=== PATIENT | male | born 1970 | race Caucasian/White ===

== ENCOUNTER 2019-04-09 08:23 | Inpatient (IN) | payer OTHER ==
[2019-04-09] MEDS ORDERED: LEVALBUTEROL NEB 1.25 MG/3 ML VIAL.NEB NEB ONE (08:48)
[2019-04-09] MEDS ORDERED: BUPIV. HCL 0.25% (2.5MG/ML)/EPI. (1:200,000) PF 10 ML VIAL IM ONE (08:48)
[2019-04-09] MEDS ORDERED: LIDOCAINE HCL 1% PF 300MG/30ML VIAL ONE (08:48)
[2019-04-09] MEDS ORDERED: SODIUM CHLORIDE IRRIG SOLUTION 3,000 ML IRRIG.SOLN IR ONE (08:48)
[2019-04-09] MEDS ORDERED: ROCURONIUM BROMIDE 10 MG/ML 5ML VIAL ONE (08:48)
[2019-04-09] MEDS ORDERED: DEXAMETHASONE SODIUM PHOSPHATE 10 MG/ML VIAL ONE (08:48)
[2019-04-09] MEDS ORDERED: ceFAZolin SODIUM 1 GM VIAL ONE (08:48)
[2019-04-09] MEDS ORDERED: MIDAZOLAM HCL 2 MG/2 ML VIAL ONE (08:48)
[2019-04-09] MEDS ORDERED: SUGAMMADEX SODIUM 200 MG/2 ML VIAL IV ONE (08:48)
[2019-04-09] MEDS ORDERED: PROPOFOL 200 MG/20 ML VIAL IV ONE (08:48)
[2019-04-09] MEDS ORDERED: FAMOTIDINE 20 MG/2 ML VIAL IV ONE (08:48)
[2019-04-09] MEDS ORDERED: ONDANSETRON HCL/PF 4 MG/ 2ML VIAL ONE (08:48)
[2019-04-09] MEDS ORDERED: SCOPOLAMINE HYDROBROMIDE 1.5MG/72HR PATCH TD ONE (08:48)
[2019-04-09] MEDS ORDERED: LIDOCAINE HCL 2% PF 100MG/5ML VIAL IJ ONE (08:48)
[2019-04-09] MEDS ORDERED: SEVOFLURANE 250 ML LIQUID IH ONE (08:48)
[2019-04-09] MEDS ORDERED: LACTATED RINGERS 1,000 ML IV.SOLN IV ONE ×2 (08:48)
[2019-04-09] MEDS ORDERED: PATIENT OWN MED 1 EACH EACH PO SCH (10:00)
[2019-04-09] MEDS ORDERED: fentaNYL CITRATE/PF 100 MCG/2 ML INJ. ONE ×2 (12:29→12:51)
[2019-04-09] MEDS ORDERED: HYDROmorphone HCL/PF 1 MG/ML VIAL ONE (12:41)
[2019-04-09] MEDS ORDERED: 0.9 % SODIUM CHLORIDE 1,000 ML IV ONE (13:35)
[2019-04-09 13:55] VITALS: BMI 39.1
[2019-04-09] MEDS ORDERED: IPRATROPIUM/ALBUTEROL SULFATE 3 ML AMPUL.NEB NEB PRN (14:03)
[2019-04-09] MEDS ORDERED: HYDROcodone-ACETAMIN 7.5-325/15ML SOLN UD CUP PO PRN (14:22)
[2019-04-09] MEDS ORDERED: ONDANSETRON HCL/PF 4 MG/ 2ML VIAL IVP PRN (14:22)
[2019-04-09] MEDS ORDERED: ACETAMINOPHEN 1,000 MG/100 ML INJ IV PRN (14:22)
[2019-04-09] MEDS ORDERED: PROMETHAZINE HCL 25 MG in 0.9 % SODIUM CHLORIDE 50 ML IV PRN (14:22)
[2019-04-09] MEDS ORDERED: diphenhydrAMINE HCL 50 MG/ML VIAL IVP PRN (15:22)
[2019-04-09] MEDS: 0.9 % SODIUM CHLORIDE 1,000 ML IV SCH ×3 (15:40→22:20)
[2019-04-09] MEDS: MORPHINE SULFATE 2 MG/ML VIAL IV PRN ×2 (16:08→19:57)
[2019-04-09] MEDS: ceFAZolin SODIUM 1 GM in 0.9 % SODIUM CHLORIDE 50 ML IV SCH ×2 (16:16→23:00)
--- NOTE | 2019-04-09 18:36 | History and Physical Report ---
History of Present Illnes - History of Present Illness Reason for Visit: s/p gastric sleeve surgery History of Present Illness: 49yo who has had problems with morbid obesity for years with BMI of 39. Patient has tried various weight loss programs, engaged in exercise and has not been successful at losing much weight or maintaining any weight loss that he has accomplished. Patient has comorbidities of hyperlipidemia, GERD, and obstructive sleep apnea. Patient presented to day for gastric sleeve surgery. Patient did not have any intraoperative complications. Patient admitted to floor for further postoperative care. 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 ) - Past Family History Mother Family History: DM, , Other (RA, melenoma) Father Family History: Cancer (liver), (77yo) - Past Social History Smoke: # pack years (62), Quit (about 6 weeks ago) Occupation: disabled Alcohol: None Drugs: None Lives: Alone Domestic Violence: Negative - Health Maintenance Health Maintenance: Cholesterol. denies: Influenza Vaccine Influenza Vaccine: No Pneumonia Vaccine: No Resuscitation Status: Resusciation Status Resuscitation Status Full Code - Unable to Obtain History Unable to Obtain: No Review of Systems - Review of Systems Constitutional: negative: Fever, Chills, Weakness Eyes: negative: pain, vision change, conjunctivae inflammation ENT: negative: Ear Pain, Ear Discharge, Nose Pain, Nose Discharge, Nose Congestion, Mouth Pain, Mouth Swelling, Throat Pain Respiratory: negative: Cough, Dry, Shortness of Breath, Hemoptysis, SOB with Excertion, Pleuritic Pain, Sputum, Wheezing Cardiovascular: negative: Chest Pain, Palpitations, Orthopnea, Paroxysmal Noc. Dyspnea, Edema, Light Headedness Gastrointestinal: Abdominal Pain, Diarrhea. negative: Nausea, Vomiting Genitourinary: negative: Dysuria, Frequency, Hematuria Musculoskeletal: Neck Pain Skin: negative: Rash Neurological: negative: Weakness, Numbness, Incoordination, Confusion, Seizures - Medications/Allergies Home Medications: Home Medications Allopurinol [Zyloprim] 300 mg PO DAILY 04/09/19 Atorvastatin Calcium 10 mg PO DAILY 04/09/19 Crofelemer [Mytesi] 1 tab PO BID PRN 04/09/19 Enfuvirtide [Fuzeon] 90 mg SQ BID 04/09/19 Loperamide HCl [Loperamide] 4 mg PO BID PRN 04/09/19 Lopinavir/Ritonavir [Kaletra 200-50 mg Tablet] 1 tab PO BID 04/09/19 Pantoprazole Sodium [Protonix] 40 mg PO 0700 04/09/19 Ranitidine HCl [Heartburn Relief] 150 mg PO BID 04/09/19 Saquinavir Mesylate [Invirase] 1,000 mg PO BID 04/09/19 Current Inpatient Medications: Current Inpatient Medications Acetaminophen (Ofirmev) 1,000 mg IV Q6H PRN PRN Reason: For Mild Breakthrough Pain Stop: 04/13/19 14:21 Hydrocodone Bitart/Acetaminophen (Hycet 7.5-325mg/15 Ml Ud Cup) 15 ml PO Q4 PRN PRN Reason: Mild Pain (Score 1-4) Stop: 04/13/19 14:21 Albuterol/Ipratropium (Duoneb) 3 ml NEB Q4 PRN PRN Reason: Wheezing Stop: 05/09/19 14:02 Diphenhydramine HCl (Benadryl) 25 mg IVP Q6 PRN PRN Reason: itching Stop: 05/09/19 17:59 Last Admin: 04/09/19 16:06 Dose: 25 mg Enoxaparin Sodium (Lovenox) 40 mg SQ DAILY [facility] Stop: 04/24/19 11:59 Famotidine (Pepcid) 20 mg IVP BID [facility] Stop: 04/13/19 20:59 Sodium Chloride (Normal Saline) 1,000 mls @ 150 mls/hr IV Q10H [facility] Stop: 05/09/19 14:14 Last Admin: 04/09/19 16:13 Dose: 150 mls/hr Cefazolin Sodium 1 gm/ Sodium (Chloride) 50 mls @ 100 mls/hr IV Q8H [facility] Stop: 04/09/19 23:29 Last Admin: 04/09/19 16:16 Dose: 100 mls/hr Promethazine HCl 25 mg/ Sodium (Chloride) 51 mls @ 200 mls/hr IV Q6 PRN PRN Reason: Nausea / Vomiting Stop: 04/13/19 14:21 Miscellaneous (Patient Own Med) 2 each PO Q12H [facility] Stop: 05/10/19 09:59 Miscellaneous (Patient Own Med) 1 each SQ Q12H [facility] Stop: 05/09/19 21:59 Miscellaneous (Patient Own Med) 1 each PO Q12H [facility] Stop: 05/10/19 09:59 Morphine Sulfate () 2 mg IV Q2H PRN PRN Reason: Moderate Pain (Score 5-7) Stop: 04/13/19 14:21 Last Admin: 04/09/19 16:08 Dose: 2 mg Ondansetron HCl (Zofran) 4 mg IVP Q6H PRN PRN Reason: Nausea / Vomiting Stop: 04/13/19 14:21 Exam - Exam Vital Signs: Vital Signs (72 hours) 04/09/19 04/09/19 04/09/19 13:48 13:50 17:54 Temperature 98.2 F 98.2 F 98.1 F Pulse Rate [ 80 80 Left] Pulse Rate [ 67 Right] Respiratory 20 20 20 Rate Blood Pressure 166/100 166/100 [Left Arm] Blood Pressure 155/91 [Right Arm] O2 Sat by Pulse 96 99 Oximetry General: Alert, Oriented to Person, Oriented to Place, Oriented to Time, Cooperative, Moderate distress HEENT: Atraumatic, PERRLA, EOMI, Mouth Mucous membr. moist/[place], Nose Mucous membr. moist/[place] Neck: Normal Range of Motion Carotids: WNL Thyroid: WNL Lungs: Clear to auscultation, Normal air movement, Speaks full Sentences Cardiovascular: Regular rate, Normal S1, Normal S2, No murmurs Abdomen: Soft, No hepatospenomegaly, No masses, Other (incision sites clean and dry), Decreased Bowel Sounds Integumentary: Normal, [place], Warm, Dry Extremities: No clubbing, No cyanosis, No edema, Normal pulses, No tenderness/swelling Neurological: Normal gait, Normal speech, Strength Equal Bilat, Normal tone, Sensation intact, Cranial nerves 3-12 NL, Reflexes 2+ Psych/Mental Status: Mental status NL, Mood NL, Appropriate Affect, Intact Judgment Assessment/Plan - Assessment/Plan (1) S/P gastrointestinal surgery Status: Acute Current Visit: Yes Assessment: routine post op care (2) HIV (human immunodeficiency virus infection) Status: Chronic Current Visit: Yes Assessment: continue home meds (3) GERD without esophagitis Status: Chronic Current Visit: Yes (4) Hyperuricemia Status: Chronic Current Visit: Yes Assessment: continue home med (5) Observed sleep apnea Status: Chronic Current Visit: Yes (6) Chronic cervical pain Status: Chronic Current Visit: Yes Assessment: monitor (7) IBS (irritable bowel syndrome) Status: Chronic Current Visit: Yes Qualifiers: Irritable bowel syndrome type: with diarrhea Qualified Code(s): K58.0 - Irritable bowel syndrome with diarrhea Assessment: stable VTE Assessment - RISK FACTOR SCORE VTE RISK FACTOR SCORES: AGE 40-60 YEARS, ANTICIPATED BED CONFINEMENT OR IMMOBILIZATION > 24 HOURS
[2019-04-09] MEDS: FAMOTIDINE 20 MG/2 ML VIAL IVP SCH (20:02)
[2019-04-09] MEDS ORDERED: [UNRECOGNIZED DRUG - OTHER] SQ SCH (21:00)
[2019-04-09] MEDS: PATIENT OWN MED 1 EACH EACH SQ SCH (22:00)
[2019-04-10] MEDS: 0.9 % SODIUM CHLORIDE 1,000 ML IV SCH ×3 (05:36→17:48)
[2019-04-10 05:53] LABS: BASOPHILS % 0.2 % (0.0-1.5); NEUTROPHILS # 7.6 # k/uL (1.4-7.7)
[2019-04-10 05:58] LABS: eGFR (Non-African) > 60
--- NOTE | 2019-04-10 06:20 | Inpatient Progress Note ---
Subjective - Required Recertification Statement I anticipate X number of days because-include discharge plan: 1 - Review of Systems Events since last encounter: Patient has been up walking in the hallway this morning; he states he had some nausea and abdominal discomfort; seems to be doing well. Very social; VSS. He states that he did not get much sleep. He was having a lot of discomfort last night. He states that pain is improving. He denies any chest pain or shortness of breath. He has been up ambulating in the halls and using incentive spirometer while awake. He is compliant with care. General: Denies: Fatigue HEENT: Denies: Head Aches Pulmonary: Denies: Dyspnea Cardiovascular: Denies: Chest Pain, Light Headedness Gastrointestinal: Nausea, Vomiting, Abdominal Pain Genitourinary: Denies: Dysuria Musculoskeletal: Denies: Back Pain Neurological: Weakness Objective - Exam Vitals and I&O: Vital Signs Temp 98.4 F 04/10/19 05:26 Pulse 51 L 04/10/19 05:26 Resp 20 04/10/19 05:26 BP 157/86 04/10/19 05:26 Pulse Ox 94 04/10/19 05:26 Intake & Output 04/09/19 04/09/19 04/10/19 11:59 23:59 11:59 Intake Total 490 840 Output Total 225 900 Balance 265 -60 Weight 106.594 kg Intake: IV 450 600 Right Hand 450 600 Oral 40 240 Output: Urine 225 900 Other: Voiding Method Urinal Urinal # Voids 2 # Bowel Movements 0 0 General: Alert, Oriented to Person, Oriented to Place, Oriented to Time, Cooperative, Mild distress, Morbidly Obese HEENT: Atraumatic, PERRLA, Mouth Mucous membr. moist/[place], Nose Mucous membr. moist/[place] Neck: Supple, +2 carotid pulse wo bruit Lungs: Clear to auscultation, Normal air movement, Speaks full Sentences Cardiovascular: Normal S1, Normal S2, Bradycardia (45) Abdomen: Soft, Decreased Bowel Sounds Extremities: No edema, Normal pulses, No tenderness/swelling Skin: Warm, Dry, Pale, Other (incisions x5 without redness/erythema/drainage; Skin adhesive intact) Neurological: Normal gait, Normal speech, Strength Equal Bilat, Generalized Weakness Psych/Mental Status: Mental status NL, Mood NL, Appropriate Affect, Intact Judgment - Results Results: Laboratory Results WBC 9.30 K/ul (4.00-12.00) 04/10/19 05:15 RBC 3.80 M/ul (3.90-5.20) L 04/10/19 05:15 Hgb 12.5 g/dL (12.0-18.0) 04/10/19 05:15 Hct 36.0 % (37.0-53.0) L 04/10/19 05:15 MCV 95.0 fl (80.0-100.0) 04/10/19 05:15 MCH 32.8 pg (28.0-34.0) 04/10/19 05:15 MCHC 34.6 g/dL (30.0-36.0) 04/10/19 05:15 RDW 12.6 % (11.3-14.3) 04/10/19 05:15 Plt Count 192 K/mm3 (130-400) 04/10/19 05:15 Neut % (Auto) 81.5 % (39.0-79.0) H 04/10/19 05:15 Lymph % (Auto) 14.3 % (16.0-50.0) L 04/10/19 05:15 [place] % (Auto) 3.2 % (0.0-11.0) 04/10/19 05:15 Eos % (Auto) 0.8 % (0.0-6.8) 04/10/19 05:15 Baso % (Auto) 0.2 % (0.0-1.5) 04/10/19 05:15 Neut # (Auto) 7.6 # k/uL (1.4-7.7) 04/10/19 05:15 Lymph # (Auto) 1.3 # k/uL (0.6-4.0) 04/10/19 05:15 [place] # (Auto) 0.3 # k/uL (0.0-0.9) 04/10/19 05:15 Eos # (Auto) 0.1 # k/uL (0.0-0.6) 04/10/19 05:15 Baso # (Auto) 0.0 # k/uL (0.0-0.5) 04/10/19 05:15 Sodium 139 mmol/L (137-145) 04/10/19 05:15 Potassium 4.7 mmol/L (3.5-5.1) 04/10/19 05:15 Chloride 104 mmol/L (98-107) 04/10/19 05:15 Carbon Dioxide 25 mmol/L (22-30) 04/10/19 05:15 Anion Gap 14.7 04/10/19 05:15 BUN 12 mg/dL (9-20) 04/10/19 05:15 Creatinine 0.90 mg/dL (0.66-1.25) 04/10/19 05:15 Estimated Creat Clear 149 04/10/19 05:15 Est GFR ( Amer) > 60 (60-) 04/10/19 05:15 Est GFR (Non-Af Amer) > 60 (60-) 04/10/19 05:15 Glucose 142 mg/dL (74-106) H 04/10/19 05:15 Calcium 9.0 mg/dL (8.4-10.2) 04/10/19 05:15 Total Bilirubin 0.8 mg/dL (0.2-1.3) 04/10/19 05:15 AST 41 U/L (15-46) 04/10/19 05:15 ALT 33 U/L (0-50) 04/10/19 05:15 Alkaline Phosphatase 77 U/L (38-126) 04/10/19 05:15 Total Protein 7.4 g/dL (6.3-8.2) 04/10/19 05:15 Albumin 4.1 g/dL (3.5-5.0) 04/10/19 05:15 Assessment/Plan - Assessment/Plan (1) S/P gastrointestinal surgery Status: Acute Current Visit: Yes Assessment: Patient experiencing nausea; has been ambulating, wearing SCDs while in bed, using incentive spirometry, patient receiving lovenox to prevent DVT Plan: Patient getting IV fluids for hydration, IV pain meds, and IV antiemetics. Lovenox and SCDs to help prevent DVTs, IS and frequent ambulation will be implemented. Patient eating ice chips and will advance diet to clear liquids as tolerated once nausea and vomiting is controlled. Will continue with Pepcid IV BID for GI upset (2) GERD without esophagitis Status: Chronic Current Visit: Yes Assessment: Patient having a little abdominal discomfort with reflux Plan: Will continue with IV Pepcid 20 mg BID (3) HIV (human immunodeficiency virus infection) Status: Chronic Current Visit: Yes Assessment: Patient does not feel he can take his large HIV meds; he received injection prior to surgery Plan: Will continue to hold PO HIV meds; received injection prior to surgery (4) Observed sleep apnea Status: Chronic Current Visit: Yes Assessment: Patient is doing well; no SOA Plan: Will continue to monitor (5) Morbid obesity due to excess calories Status: Acute Current Visit: Yes Assessment: Patient tolerating ice chips and water; some nausea Plan: Will advance diet to clear liquids today
[2019-04-10] MEDS: FAMOTIDINE 20 MG/2 ML VIAL IVP SCH ×2 (09:55→21:01)
[2019-04-10] MEDS: PATIENT OWN MED 1 EACH EACH PO SCH ×4 (09:57→21:09)
[2019-04-10] MEDS: PATIENT OWN MED 1 EACH EACH SQ SCH ×2 (09:58→21:26)
[2019-04-10] MEDS: ENOXAPARIN SODIUM 40 MG/0.4 ML DISP.SYRIN SQ SCH (13:36)
[2019-04-10] MEDS ORDERED: SOUTH LOCK-UP KEY 1 EACH EACH MC ONE (21:08)
[2019-04-11] MEDS: 0.9 % SODIUM CHLORIDE 1,000 ML IV SCH ×2 (00:36→06:34)
[2019-04-11] MEDS: ENOXAPARIN SODIUM 40 MG/0.4 ML DISP.SYRIN SQ SCH (08:59)
[2019-04-11] MEDS: PATIENT OWN MED 1 EACH EACH SQ SCH (08:59)
[2019-04-11] MEDS: PATIENT OWN MED 1 EACH EACH PO SCH ×2 (08:59)
[2019-04-11] MEDS: FAMOTIDINE 20 MG/2 ML VIAL IVP SCH (09:01)
[2019-04-11 09:24] VITALS: BP 159/93
--- NOTE | 2019-04-11 10:23 | Discharge Summary ---
Discharge Summary - Discharge [facility] Admission Date: 04/09/19 Discharge Date: 04/11/19 Discharge To: Home History of Present Illness: 49yo who has had problems with morbid obesity for years with BMI of 39. Patient has tried various weight loss programs, engaged in exercise and has not been successful at losing much weight or maintaining any weight loss that he has accomplished. Patient has comorbidities of hyperlipidemia, GERD, and obstructive sleep apnea. Condition at Discharge: Stable Home Medications: Ambulatory Orders Medication Instructions Recorded Allopurinol [Zyloprim] 300 mg PO DAILY 04/09/19 Atorvastatin Calcium 10 mg PO DAILY 04/09/19 Crofelemer [Mytesi] 1 tab PO BID PRN 04/09/19 Enfuvirtide [Fuzeon] 90 mg SQ BID 04/09/19 Loperamide HCl [Loperamide] 4 mg PO BID PRN 04/09/19 Lopinavir/Ritonavir [Kaletra 1 tab PO BID 04/09/19 200-50 mg Tablet] Pantoprazole Sodium [Protonix] 40 mg PO 0700 04/09/19 Ranitidine HCl [Heartburn Relief] 150 mg PO BID 04/09/19 Saquinavir Mesylate [Invirase] 1,000 mg PO BID 04/09/19 Consultations this Visit: Other (Therapy, hospitalist service) Procedures this Visit: Other (Sleeve gastrectomy) Allergies/Adverse Reactions: Allergies Allergy/AdvReac Type Severity Reaction Status Date / Time codeine Allergy Verified 04/09/19 18:39 Sulfa (Sulfonamide Allergy Verified 04/09/19 18:39 Antibiotics) Patient Problems: Current Active Problems Problem Status Onset Morbid obesity due to excess calories Acute S/P gastrointestinal surgery Acute Chronic cervical pain Chronic GERD without esophagitis Chronic HIV (human immunodeficiency virus infection) Chronic Hyperuricemia Chronic IBS (irritable bowel syndrome) Chronic Observed sleep apnea Chronic Discharge Summary: Discharged to home with continuation of current medications, phenergan 6.25 mg /5ml 10 cc every six hours prn nausea and hydrocodone 7.5 ml/15 ml 10 cc every six hours prn pain. Resume all previous medications. Follow up as scheduled. Hospital Course: Patient presented to [facility] for gastric sleeve surgery. Patient did not have any intraoperative complications. Patient admitted to floor for further postoperative care. He ambulated well and was compliant with postoperative diet and recommendations.
--- NOTE | 2019-04-13 17:39 | Operative Note ---
PROCEDURE DATE: 04/09/2019 PREOPERATIVE DIAGNOSIS: 1. Morbid obesity. 2. Gastroesophageal reflux disease. POSTOPERATIVE DIAGNOSIS: 1. Morbid obesity. 2. Gastroesophageal reflux disease. PROCEDURES PERFORMED: 1. Laparoscopic vertical sleeve gastrectomy. 2. Upper gastrointestinal endoscopy. SURGEON: Chase Khoury M.D. INDICATIONS FOR PROCEDURE: Mr. Oliver is a 49-year-old male who presented with features of morbid obesity. He was noted to have a weight of 243 pounds with a BMI of 40.4 with the above-listed comorbidities. The patient was advised laparoscopic vertical sleeve gastrectomy and possible hiatal hernia repair. The patient showed understanding and agreed to proceed. DESCRIPTION OF PROCEDURE: After explaining to the patient in detail and informed consent was obtained, the patient was identified in the preoperative holding area. The patient was transferred to the operating room and was placed in supine position. Sequential compressive devices were placed for DVT prophylaxis. Preoperative antibiotics were given. After induction of anesthesia, the abdomen was prepped and draped in a sterile fashion. Through a left upper quadrant 1-cm incision, and using Optiview technique, the peritoneal cavity was entered and pneumoperitoneum was created. Thereafter, under direct vision, another 5-mm trocar was placed in the left midabdomen and another 15-mm trocar was placed in the right midabdomen. Through a 1-cm incision in the right subcostal region, another 5-mm trocar was placed. Through a 1-cm incision in the epigastrium, a Markie retractor was introduced and the left lobe of the liver was retracted. On initial inspection, the patient was noted to have no evidence of hiatal hernia. I took down the gastroepiploic vessels using a LigaSure. This was continued superiorly. The short gastric vessels were taken down. The gastrophrenic ligament was divided and the Angle of His was mobilized. The posterior attachments of the stomach on the pancreas were released. Distally, the gastroepiploic vessels were taken down up to about 4 cm proximal to the pylorus. At this point, a #38 [place] Bougie was introduced into the stomach and was placed along the lesser curve. The stomach was then divided in a vertical fashion with multiple Endo ALF Covidien Black Load Staplers. The first firing was directed outwards towards the greater curvature. Subsequent firings were directed towards the Angle of His to create a loose sleeve around the #38 [place] bougie. The bougie was then removed and an upper GI endoscopy was performed at this point. The scope was introduced into the esophagus and was gradually advanced into the stomach. The GE junction appeared normal. The sleeve size appeared normal. No evidence of any active bleeding was noted. The stomach was insufflated with air and irrigation of fluid along the staple line revealed no evidence of air leak. The stomach was then suctioned out and the scope was removed. Absolute hemostasis was ensured. Thorough saline irrigation was given. The Markie retractor was removed. Approximately 10 mL of a lidocaine- Marcaine mix was instilled under the left hemidiaphragm. The sleeve gastrectomy specimen was removed. The abdomen was then deflated. The incisions were closed with 4-0 Monocryl. Dermabond was applied. Approximately 10 mL of a lidocaine- Marcaine mix was injected into all the incisions. The patient was awakened from anesthesia and was transferred to the recovery room in stable condition. ESTIMATED BLOOD LOSS: Approximately 10 mL. CONDITION OF THE PATIENT: Stable. FLUIDS GIVEN: Per Anesthesia note. SPECIMEN(S) SENT: Sleeve gastrectomy specimen. COMPLICATIONS: None. ANESTHESIA: General. Chase Khoury M.D. DEB/godfrey (Please copy [facility] provider when applicable) Job #[id number]
== END 2019-04-11 11:30 | disposition home or self-care (01) | DRG 621 ==
LOC: OPSURG 08:23 → SOUTH 13:41
PROVIDERS: ADMIT Family Medicine; ATTEND Family Medicine
PROC: 0DB64Z3 Excision of Stomach, Percutaneous Endoscopic Approach, Vertical (ICD-10-PCS; principal; 2019-04-09)
DX: E66.01 Morbid (severe) obesity due to excess calories (principal); K21.9 Gastro-esophageal reflux disease without esophagitis; E78.5 Hyperlipidemia, unspecified; G47.33 Obstructive sleep apnea (adult) (pediatric); G43.909 Migraine, unspecified, not intractable, without status migrainosus; K76.0 Fatty (change of) liver, not elsewhere classified; G89.29 Other chronic pain; E79.0 Hyperuricemia without signs of inflammatory arthritis and tophaceous disease; M54.2 Cervicalgia; K58.0 Irritable bowel syndrome with diarrhea; Z21 Asymptomatic human immunodeficiency virus [HIV] infection status; Z80.0 Family history of malignant neoplasm of digestive organs; Z80.8 Family history of malignant neoplasm of other organs or systems; Z83.3 Family history of diabetes mellitus; Z82.61 Family history of arthritis; Z87.891 Personal history of nicotine dependence; Z79.899 Other long term (current) drug therapy; Z68.41 Body mass index [BMI] 40.0-44.9, adult; Z88.5 Allergy status to narcotic agent; Z88.2 Allergy status to sulfonamides
CPT/HCPCS: 80053; 85025; 97116; 97535; J0690; J1170; J1200; J1650; J2270; J3010; J7030; 43235; 43775; 99221; 99231; 99238; J2001; J2250; J2405; J2704; J7614; A9270-GY; J7120